=== PATIENT | female | born 1975 | race Caucasian/White ===

== ENCOUNTER 2018-01-17 05:22 | Day surgery (SDC) | payer BC ==
[~2018-01-17] VITALS: Ht 165.1 cm; Wt 80.0 kg
[2018-01-17 05:52] VITALS: BP 107/73; PULSE 91; TEMP 98.7
[2018-01-17] MEDS ORDERED: CELEBREX 1100 MG/CAP PO (05:55)
[2018-01-17] MEDS ORDERED: XANAX 0.5MG0.5 MG PO (05:55)
[2018-01-17] MEDS ORDERED: GLUCOPHAGE1000 MG PO (05:55)
[2018-01-17] MEDS ORDERED: NEXIUM 24HR20 M1 PO (05:56)
[2018-01-17] MEDS ORDERED: MELATONIN5 M1 SL (05:56)
[2018-01-17] MEDS ORDERED: B COMPLEX #11 TA1 PO (05:56)
[2018-01-17 07:39] VITALS: BP 110/68; PULSE 78; TEMP 98.1
[2018-01-17 07:45] VITALS: BP 123/93; PULSE 76
[2018-01-17 08:00] VITALS: BP 102/62; PULSE 79
[2018-01-17 08:15] VITALS: BP 105/59; PULSE 66
== END 2018-01-17 08:35 | disposition home or self-care (01) ==
LOC: SDCO 05:22
DX: M65.312 Trigger thumb, left thumb (principal); E11.9 Type 2 diabetes mellitus without complications; Z79.84 Long term (current) use of oral hypoglycemic drugs; F17.210 Nicotine dependence, cigarettes, uncomplicated; Z79.899 Other long term (current) drug therapy; Z82.61 Family history of arthritis; K21.9 Gastro-esophageal reflux disease without esophagitis; Z83.3 Family history of diabetes mellitus
CPT/HCPCS: J0690; J2250; J2405; J2704; J3010; J7120